=== PATIENT | female | born 1985 | race Hispanic/Latino ===

== ENCOUNTER → 2025-06-04 | Outpatient (CLI) | payer MEDICAID ==
[~2025-06-04] MED LIST: GADOTERATE MEGLUMINE 10 MMOL/20 ML VIAL IV ONE
--- NOTE | 2025-06-05 01:40 | HMCIMG ---
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 Series acquired: 13 - AX T1?TR: 673.0?TE: 14.9?ET: 5.0?Thk: 5.0 14 - AX STIR?TR: 38224.0?TE: 43.7?ET: 17.0?Thk: 5.0 15 - AX T2 FS?TR: 4377.0?TE: 69.3?ET: 15.0?Thk: 5.0 17 - COR T1?TR: 486.0?TE: 17.9?ET: 5.0?Thk: 5.0 18 - COR STIR?TR: 5142.0?TE: 47.8?ET: 21.0?Thk: 5.0 19 - COR T2?TR: 5448.0?TE: 105.1?ET: 16.0?Thk: 5.0 20 - SAG T2?TR: 5469.0?TE: 93.5?ET: 12.0?Thk: 6.0 21 - SAG T1?TR: 579.0?TE: 16.8?ET: 7.0?Thk: 6.0 22 - SAG STIR?TR: 4541.0?TE: 48.2?ET: 17.0?Thk: 6.0 25 - G+ AX T1 FS?TR: 730.0?TE: 16.4?ET: 3.0?Thk: 5.0 26 - G+ SAG T1 FS?TR: 737.0?TE: 16.8?ET: 3.0?Thk: 6.0 28 - G+ COR T1 FS?TR: 791.0?TE: 16.1?ET: 3.0?Thk: 5.0 CONTRAST: Gadolinium-based intravenous contrast administered. COMPARISON: None provided. FINDINGS: BOWEL: Grossly unremarkable. No wall thickening or mass. URINARY BLADDER: Normal wall thickness and contour. No calculus or filling defect. REPRODUCTIVE ORGANS: Uterus is surgically absent. Ovaries not visualised, likely surgically absent. No adnexal mass or pelvic fluid collection. LYMPH NODES: No pelvic or inguinal lymphadenopathy. MUSCULOSKELETAL STRUCTURES: No soft tissue or abdominal wall mass seen in the pelvis. Degenerative disc desiccation changes at L5???S1 with mild diffuse disc bulge without neural contact or significant canal stenosis. BONES: No acute fracture or marrow-replacing lesion. IMPRESSION: * Post-hysterectomy status. No pelvic mass or desmoid lesion identified. * Degenerative disc desiccation changes at L5???S1 with mild diffuse disc bulge, no neural contact. * No acute pelvic abnormality. /[place]
--- NOTE | 2025-06-05 01:53 | HMCIMG ---
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 Series Acquired: 4 - COR SSFSE ARC?TR: 676.8?TE: 89.3?ET: 1.0?Thk: 6.0 5 - COR LAVA ARC?TR: 4.3?TE: 2.0?ET: 1.0?Thk: 4.4 7 - AX SSFSE BH ARC?TR: 571.1?TE: 89.3?ET: 1.0?Thk: 6.0 8 - AX 3D DUALECHO BH?TR: 6.5?TE: 2.1?ET: 1.0?Thk: 4.4 9 - AX T2 FRFSE FATSAT ELSA ARC?TR: 45498.1?TE: 103.6?ET: 17.0?Thk: 6.0 10 - AX DWI B=500 BH?TR: 3400.0?TE: 59.3?ET: 1.0?Thk: 6.0 24 - G+ COR LAVA ARC?TR: 4.3?TE: 2.0?ET: 1.0?Thk: 4.4 2300???2306 - AX LAVA ARC DYNAMIC series (5 dynamic phases, TR: 4.4?TE: 1.9?Thk: 4.4???20.0) CONTRAST: Gadolinium-based intravenous contrast administered. COMPARISON: None provided. FINDINGS: Lower Thorax: No pleural effusion or basal lung abnormality. Liver: Mild hepatomegaly with craniocaudal length measuring approximately 16 cm. Diffuse signal drop on [id number] sequence consistent with fatty liver (hepatic steatosis). A small marginal enhancing T2 hyperintense lesion measuring 1.2 ??? 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 No focal lesion suspicious for malignancy. Gallbladder and Bile Ducts: Normal in configuration. No gallstones or biliary dilatation. Pancreas: Normal size and contour. No ductal dilatation or focal lesion. Spleen: Normal size and signal intensity. Adrenals: Normal morphology bilaterally. Kidneys: Normal size and cortical thickness. No hydronephrosis or mass. Abdominal Wall: A well-defined T2 and STIR hypointense, mildly T1 hypointense lesion measuring 3.0 ??? 1.5 cm is seen in the right rectus abdominis muscle at the supraumbilical region. The lesion demonstrates progressive post-contrast enhancement on dynamic sequences, with internal flow voids and feeding vessels arising from branches of the superior mesenteric vein. 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 No evidence of necrosis or adjacent organ invasion. Lymph Nodes: No intra-abdominal lymphadenopathy. Vasculature: Abdominal aorta and its major branches are patent. No aneurysm or thrombosis. Bowel: No bowel dilatation or wall thickening. Bones: Visualised osseous structures show no focal marrow lesion. IMPRESSION: * Right anterior abdominal wall lesion (3.0 ??? 1.5 cm) in the rectus abdominis at the supraumbilical region, showing T2 hypointensity, progressive post-contrast enhancement, and internal flow voids supplied by branches of the superior mesenteric vein ??? 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 * Hepatomegaly with fatty liver (hepatic steatosis). * Small 1.2 ??? 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 * No intra-abdominal lymphadenopathy or visceral metastasis. 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 Recommend correlation with surgical and histopathologic evaluation. No imaging evidence of intra-abdominal extension or distant spread. /[place]
== END | disposition home or self-care (01) ==
LOC: RAH 07:27
PROVIDERS: ATTEND Surgery Surgical Oncology
DX: D48.113 Desmoid tumor of abdominal wall (principal); K76.0 Fatty (change of) liver, not elsewhere classified; R16.0 Hepatomegaly, not elsewhere classified; M51.379 Other intervertebral disc degeneration, lumbosacral region without mention of lumbar back pain or lower extremity pain; Z90.710 Acquired absence of both cervix and uterus
CPT/HCPCS: 74183; 72197; A9575